=== PATIENT | male | born 1995 | race Hispanic/Latino ===

== ENCOUNTER 2021-12-22 12:59 | Emergency (ER) | payer SELFPAY ==
[~2021-12-22] VITALS: Ht 167.6 cm; Wt 81.7 kg
== END 2021-12-22 14:24 | disposition home or self-care (01) ==
LOC: ED 12:59
DX: S81.811A Laceration without foreign body, right lower leg, initial encounter (principal); W01.198A Fall on same level from slipping, tripping and stumbling with subsequent striking against other object, initial encounter; Z23 Encounter for immunization; Z88.0 Allergy status to penicillin
CPT/HCPCS: 90715